=== PATIENT | female | born 1960 | race Caucasian/White ===

== ENCOUNTER 2017-04-27 16:34 | Emergency (ER) | payer MEDICAID ==
[2017-04-27 16:47] VITALS: BP 149/83
[2017-04-27] MEDS ORDERED: Sodium Chloride 0.9% 10 ML Syringe FLUSH PRN (17:14)
[2017-04-27] MEDS ORDERED: Ondansetron 4 MG/2 ML SDV IVPUSH ONE (17:15)
[2017-04-27] MEDS ORDERED: Lactated Ringers 1,000 ML IV SCH (17:15)
--- NOTE | 2017-04-27 17:21 | EDM.PDOC ---
ED HPI GENERAL MEDICAL PROBLEM - General Chief Complaint: Gastrointestinal Problem Stated Complaint: FLU Time Seen by Provider: 04/27/17 17:07 Source of Information: Reports: Patient, RN Notes Reviewed History Limitations: Reports: No Limitations - History of Present Illness INITIAL COMMENTS - FREE TEXT/NARRATIVE: 57-year-old female presents emergency department day complaint of nausea vomiting and diarrhea she's been ill for about 4 days denies any sick contacts no exposures food no fevers, still passing gas stool is mostly water no blood no formed stool has used Compazine for her nausea with some relief stomach Pain Score (Numeric/FACES): 5 - Related Data Allergies Allergy/AdvReac Type Severity Reaction Status Date / Time latex Allergy Numbness Verified 04/27/17 16:46 nitrofurantoin Allergy Shortness Verified 04/27/17 16:46 [From Macrobid] of Breath NSAIDS (Non-Steroidal Allergy Rash Verified 04/27/17 16:46 Anti-Inflamma Penicillins Allergy Rash Verified 04/27/17 16:46 Home Meds: Home Meds ALPRAZolam [Xanax] 1 mg PO DAILY 06/13/16 [History] Estradiol 0.5 mg PO DAILY 06/13/16 [History] Levothyroxine [Levothroid] 137 mcg PO DAILY 06/13/16 [History] Omeprazole 40 mg PO BEDTIME 06/13/16 [History] Sertraline [Zoloft] 100 mg PO DAILY 06/13/16 [History] ARIPiprazole [Abilify] 5 mg PO DAILY 04/27/17 [History] Prochlorperazine Maleate [Compazine] 10 mg PO Q8HR PRN 04/27/17 [History] Past Medical History HEENT History: Reports: Impaired Vision Cardiovascular History: Reports: High Cholesterol Respiratory History: Reports: Asthma Gastrointestinal History: Reports: GERD [employer]GER [employer]TER[employer]MENT AND [employer] History: Reports: Other (See Below) Other OB/BYN History: bilateral breaset reduction Musculoskeletal History: Reports: Arthritis Psychiatric History: Reports: Anxiety, Depression Endocrine/Metabolic History: Reports: Hypothyroidism - Infectious Disease History Infectious Disease History: Reports: Chicken Pox - Past Surgical History GI Surgical History: Reports: Cholecystectomy, Colonoscopy, EGD Female Surgical History: Reports: Hysterectomy Other Musculoskeletal Surgeries/Procedures:: connective tissue disease. scope on bilateral knee for miniscus Social & Family History - Tobacco Use Smoking Status *Q: Never Smoker - Caffeine Use Caffeine Use: Reports: Coffee, Soda - Recreational Drug Use Recreational Drug Use: No ED ROS GENERAL - Review of Systems Review Of Systems: See Below Constitutional: Reports: No Symptoms HEENT: Reports: No Symptoms Respiratory: Reports: No Symptoms Cardiovascular: Reports: No Symptoms GI/Abdominal: Reports: Abdominal Pain, Diarrhea, Flatus, Nausea, Vomiting : Reports: No Symptoms Musculoskeletal: Reports: No Symptoms Skin: Reports: No Symptoms ED EXAM, GI/ABD - Physical Exam Exam: See Below Text/Narrative:: General: Female, not in any distress, alert and oriented x3 HEENT: head is atraumatic normocephalic, eyes pupils equal round reactive to light, sclera clear no conjunctivitis appreciated. Ears tympanic membranes clear and hodges landmarks and light reflex are present bilaterally canals are clear. Nose no septal deviation, nares are clear, no blood present. Mouth mucosa is moist and pink no erythema or exudate noted in soft palate, tongue is midline uvula is midline, dentition is intact. Neck: Supple no thyromegaly no tracheal deviation. Nodes: Cervical nodes subclavicular nodes nontender no palpable lymphadenopathy noted. Lungs: clear to auscultation bilaterally with symmetrical respirations, no adventitious noise appreciated. CV: Regular rate and rhythm S1 and S2 appreciated no murmurs rubs or gallops noted. Abdomen: Soft, nontender, no palpable masses or organomegaly appreciated, no distention no guarding bowel sounds are present, . Neuro: Cranial nerves II through XII grossly intact Skin: Warm and dry, intact Extremities: No lower extremity edema appreciated, Course - Vital Signs Last Recorded V/S: Last Vital Signs Temp 97.0 F 04/27/17 16:46 Pulse 83 04/27/17 16:46 Resp 16 04/27/17 16:46 BP 149/83 H 04/27/17 16:46 Pulse Ox 95 04/27/17 16:46 - Orders/Labs/Meds Orders: Active Orders 24 hr Category Date Time Status Peripheral IV Care [RC] . DIRECTED Care 04/27/17 17:14 Active Lactated Ringers [Ringers, Lactated] 1,000 ml Med 04/27/17 17:15 Active IV ASDIRECTED Sodium Chloride 0.9% [Saline Flush] Med 04/27/17 17:14 Active 10 ml FLUSH ASDIRECTED PRN Peripheral IV Insertion Adult [OM.PC] Urgent Oth 04/27/17 17:14 Ordered Medication Orders Lactated Ringer's (Ringers, Lactated) 1,000 mls @ 999 mls/hr IV ASDIRECTED EBONIE Last Admin: 04/27/17 17:37 Dose: 999 mls/hr Sodium Chloride (Saline Flush) 10 ml FLUSH ASDIRECTED PRN PRN Reason: Keep Vein Open Last Admin: 04/27/17 17:33 Dose: 10 ml Labs: Laboratory Tests 04/27/17 04/27/17 04/27/17 Range/Units 17:26 17:26 17:26 WBC 9.3 (4.5-11.0) K/uL RBC 4.12 (3.30-5.50) M/uL Hgb 11.2 L (12.0-15.0) g/dL Hct 35.5 L (36.0-48.0) % MCV 86 (80-98) fL MCH 27 (27-31) pg MCHC 32 (32-36) % Plt Count 300 (150-400) K/uL Neut % (Auto) 71 H (36-66) % Lymph % (Auto) 22 L (24-44) % [place] % (Auto) 6 (2-6) % Eos % (Auto) 1 L (2-4) % Baso % (Auto) 0 (0-1) % Sodium 139 L (140-148) mmol/L Potassium 3.5 L (3.6-5.2) mmol/L Chloride 103 (100-108) mmol/L Carbon Dioxide 29 (21-32) mmol/L Anion Gap 10.5 (5.0-14.0) mmol/L BUN 13 (7-18) mg/dL Creatinine 0.8 (0.6-1.0) mg/dL Est Cr Clr Drug Dosing 65.73 mL/min Estimated GFR (MDRD) > 60 (>60) Glucose 108 H (74-106) mg/dL Lactic Acid 1.3 (0.4-2.0) mmol/L Calcium 7.9 L (8.5-10.1) mg/dL Total Bilirubin 0.2 (0.2-1.0) mg/dL AST 53 H (15-37) U/L ALT 68 (12-78) U/L Alkaline Phosphatase 148 H (46-116) U/L Troponin I < 0.017 (0.000-0.056) ng/mL Total Protein 7.5 (6.4-8.2) g/dL Albumin 3.0 L (3.4-5.0) g/dL Globulin 4.5 H (2.3-3.5) g/dL Albumin/Globulin Ratio 0.7 L (1.2-2.2) Lipase 77 (73-393) U/L Urine Color Urine Appearance Urine pH (4.5-8.0) Ur Specific [place] (1.008-1.030) Urine Protein (NEGATIVE) mg/dL Urine Glucose (UA) (NEGATIVE) mg/dL Urine Ketones (NEGATIVE) mg/dL Urine Occult Blood (NEGATIVE) Urine Nitrite (NEGATIVE) Urine Bilirubin (NEGATIVE) Urine Urobilinogen (NORMAL) mg/dL Ur Leukocyte Esterase (NEGATIVE) Urine RBC (0-5) Urine WBC (0-5) Ur Epithelial Cells Amorphous Sediment Urine Bacteria Urine Mucus 04/27/17 Range/Units 17:43 WBC (4.5-11.0) K/uL RBC (3.30-5.50) M/uL Hgb (12.0-15.0) g/dL Hct (36.0-48.0) % MCV (80-98) fL MCH (27-31) pg MCHC (32-36) % Plt Count (150-400) K/uL Neut % (Auto) (36-66) % Lymph % (Auto) (24-44) % [place] % (Auto) (2-6) % Eos % (Auto) (2-4) % Baso % (Auto) (0-1) % Sodium (140-148) mmol/L Potassium (3.6-5.2) mmol/L Chloride (100-108) mmol/L Carbon Dioxide (21-32) mmol/L Anion Gap (5.0-14.0) mmol/L BUN (7-18) mg/dL Creatinine (0.6-1.0) mg/dL Est Cr Clr Drug Dosing mL/min Estimated GFR (MDRD) (>60) Glucose (74-106) mg/dL Lactic Acid (0.4-2.0) mmol/L Calcium (8.5-10.1) mg/dL Total Bilirubin (0.2-1.0) mg/dL AST (15-37) U/L ALT (12-78) U/L Alkaline Phosphatase (46-116) U/L Troponin I (0.000-0.056) ng/mL Total Protein (6.4-8.2) g/dL Albumin (3.4-5.0) g/dL Globulin (2.3-3.5) g/dL Albumin/Globulin Ratio (1.2-2.2) Lipase (73-393) U/L Urine Color Yellow Urine Appearance Cloudy Urine pH 6.0 (4.5-8.0) Ur Specific [place] 1.010 (1.008-1.030) Urine Protein Negative (NEGATIVE) mg/dL Urine Glucose (UA) Normal (NEGATIVE) mg/dL Urine Ketones Negative (NEGATIVE) mg/dL Urine Occult Blood Negative (NEGATIVE) Urine Nitrite Negative (NEGATIVE) Urine Bilirubin Negative (NEGATIVE) Urine Urobilinogen Normal (NORMAL) mg/dL Ur Leukocyte Esterase Negative (NEGATIVE) Urine RBC 0-5 (0-5) Urine WBC 0-5 (0-5) Ur Epithelial Cells Few Amorphous Sediment Not seen Urine Bacteria Moderate Urine Mucus Not seen Meds: Medications Generic Name Dose Route Start Last Admin Trade Name Freq PRN Reason Stop Dose Admin Lactated Ringer's 1,000 mls @ 999 mls/hr 04/27/17 17:15 04/27/17 17:37 Ringers, Lactated IV 999 mls/hr ASDIRECTED EBONIE Administration Sodium Chloride 10 ml 04/27/17 17:14 04/27/17 17:33 Saline Flush FLUSH 10 ml ASDIRECTED PRN Administration Keep Vein Open Discontinued Medications Generic Name Dose Route Start Last Admin Trade Name Freq PRN Reason Stop Dose Admin Ondansetron HCl 4 mg 04/27/17 17:15 04/27/17 17:33 Zofran IVPUSH 04/27/17 17:16 4 mg ONETIME ONE Administration Departure - Departure Time of Disposition: 18:27 Disposition: Home, Self-Care 01 Condition: Good Clinical Impression: Gastroenteritis - Discharge Information Referrals: Andrew Barbosa Sr, MD [Primary Care Provider] - Forms: ED Department Discharge Additional Instructions: Use Zofran as needed for nausea and vomiting symptoms, use Anaspaz as needed for cramping abdominal pain, Please followup with your primary care provider in 3-5 days if not better, please call return to the emergency department with worsening of symptoms. - My Orders Last 24 Hours: My Active Orders 04/27/17 17:14 Peripheral IV Care [RC] . DIRECTED Sodium Chloride 0.9% [Saline Flush] 10 ml FLUSH ASDIRECTED PRN Peripheral IV Insertion Adult [OM.PC] Urgent 04/27/17 17:15 Lactated Ringers [Ringers, Lactated] 1,000 ml IV ASDIRECTED - Assessment/Plan Last 24 Hours: My Active Orders 04/27/17 17:14 Peripheral IV Care [RC] . DIRECTED Sodium Chloride 0.9% [Saline Flush] 10 ml FLUSH ASDIRECTED PRN Peripheral IV Insertion Adult [OM.PC] Urgent 04/27/17 17:15 Lactated Ringers [Ringers, Lactated] 1,000 ml IV ASDIRECTED Plan: Assessment Acuity = acute Site and laterality = gastroenteritis Etiology = unclear etiology Manifestations = none Location of injury = Home Lab values = CBC, CMP, troponin unremarkable Plan She had some improvement with Zofran provided as well as 1 L fluids plan is to discharge home with Zofran and Anaspaz for cramping abdominal discomfort follow- up with primary care in 3-5 days if not better Patient was in agreement with the plan all questions were answered, they were instructed to return to the emergency department or call for worsening symptoms. This note was dictated using [employer] voice recognition software please call with any questions.
== END 2017-04-27 18:39 | disposition home or self-care (01) ==
LOC: JP.ED 16:34
DX: K52.9 Noninfective gastroenteritis and colitis, unspecified (principal); E78.00 Pure hypercholesterolemia, unspecified; J45.909 Unspecified asthma, uncomplicated; K21.9 Gastro-esophageal reflux disease without esophagitis; M19.90 Unspecified osteoarthritis, unspecified site; F32.9 Major depressive disorder, single episode, unspecified; E03.9 Hypothyroidism, unspecified; Z90.49 Acquired absence of other specified parts of digestive tract; Z90.710 Acquired absence of both cervix and uterus; Z79.899 Other long term (current) drug therapy; Z88.0 Allergy status to penicillin; Z88.8 Allergy status to other drugs, medicaments and biological substances; Z91.040 Latex allergy status
CPT/HCPCS: 36415; 80053; 81001; 83605; 83690; 84484; 85025; 96361; 96374; 99284; J2405; J7050; J7120

== ENCOUNTER 2017-05-27 15:08 | Emergency (ER) | payer MEDICAID ==
[2017-05-27] MEDS ORDERED: Morphine 2 MG/ML Syringe IVPUSH ONE ×2 (16:06→17:32)
[2017-05-27] MEDS ORDERED: Clopidogrel 75 MG Tab PO ONE (16:08)
--- NOTE | 2017-05-27 16:27 | EDM.PDOC ---
ED HPI GENERAL MEDICAL PROBLEM - General Chief Complaint: Chest Pain Stated Complaint: CHEST PAIN Time Seen by Provider: 05/27/17 15:59 Source of Information: Reports: Patient, RN Notes Reviewed History Limitations: Reports: No Limitations - History of Present Illness INITIAL COMMENTS - FREE TEXT/NARRATIVE: 57-year-old female presents emergency department day complaint of chest pain and shortness of breath she states started about 6 hours ago it is worse with exertion she has no known cardiac history did present to her clinic at which an EKG was done was told by her provider that it was negative and recommend she follow-up in the emergency department. She has no radiation of the pain no diaphoresis no nausea vomiting Middle Chest Pain Score (Numeric/FACES): 7 Headache Pain Score (Numeric/FACES): 5 - Related Data Allergies Allergy/AdvReac Type Severity Reaction Status Date / Time latex Allergy Numbness Verified 05/27/17 15:45 nitrofurantoin Allergy Shortness Verified 05/27/17 15:45 [From Macrobid] of Breath NSAIDS (Non-Steroidal Allergy Rash Verified 05/27/17 15:45 Anti-Inflamma Penicillins Allergy Rash Verified 05/27/17 15:45 Home Meds: Home Meds ALPRAZolam [Xanax] 1 mg PO BEDTIME 06/13/16 [History] Estradiol 0.5 mg PO DAILY 06/13/16 [History] Levothyroxine [Levothroid] 137 mcg PO DAILY 06/13/16 [History] Omeprazole 40 mg PO BEDTIME 06/13/16 [History] Sertraline [Zoloft] 200 mg PO BEDTIME 06/13/16 [History] ARIPiprazole [Abilify] 5 mg PO BEDTIME 04/27/17 [History] Prochlorperazine Maleate [Compazine] 10 mg PO Q8HR PRN 04/27/17 [History] Past Medical History HEENT History: Reports: Impaired Vision Cardiovascular History: Reports: High Cholesterol Respiratory History: Reports: Asthma Gastrointestinal History: Reports: GERD [employer]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 scope on bilateral knee for miniscus Social & Family History - Tobacco Use Smoking Status *Q: Never Smoker Second Hand Smoke Exposure: No - Caffeine Use Caffeine Use: Reports: Soda - Recreational Drug Use Recreational Drug Use: No ED ROS GENERAL - Review of Systems Review Of Systems: See Below Constitutional: Reports: No Symptoms HEENT: Reports: No Symptoms Respiratory: Reports: Shortness of Breath Cardiovascular: Reports: Chest Pain, Dyspnea on Exertion GI/Abdominal: Reports: No Symptoms : Reports: No Symptoms Musculoskeletal: Reports: No Symptoms Skin: Reports: No Symptoms Neurological: Reports: No Symptoms ED EXAM, GENERAL - Physical Exam Exam: See Below Free Text/Narrative:: General: Female, not in any distress, alert and oriented x3 HEENT: head is atraumatic normocephalic, eyes pupils equal round reactive to light, sclera clear no conjunctivitis appreciated. Ears tympanic membranes clear and hodges landmarks and light reflex are present bilaterally canals are clear. Nose no septal deviation, nares are clear, no blood present. Mouth mucosa is moist and pink no erythema or exudate noted in soft palate, tongue is midline uvula is midline, dentition is intact. Neck: Supple no thyromegaly no tracheal deviation. Nodes: Cervical nodes subclavicular nodes nontender no palpable lymphadenopathy noted. Lungs: clear to auscultation bilaterally with symmetrical respirations, no adventitious noise appreciated. CV: Regular rate and rhythm S1 and S2 appreciated no murmurs rubs or gallops noted. Abdomen: Soft, nontender, no palpable masses or organomegaly appreciated, no distention no guarding bowel sounds are present, . Neuro: Cranial nerves II through XII grossly intact Skin: Warm and dry, intact Extremities: No lower extremity edema appreciated, Course - Vital Signs Last Recorded V/S: Last Vital Signs Temp 96.3 F 05/27/17 16:44 Pulse 69 05/27/17 16:44 Resp 16 05/27/17 18:30 BP 122/63 05/27/17 18:30 Pulse Ox 96 05/27/17 18:30 - Orders/Labs/Meds Orders: Active Orders 24 hr Category Date Time Status Cardiac Monitoring [RC] .As Directed Care 05/27/17 16:06 Active EKG Documentation Completion [RC] ASDIRECTED Care 05/27/17 16:08 Active Chest 2V [CR] Stat Exams 05/27/17 16:07 Taken Chest w Cont [CT] Stat Exams 05/27/17 17:30 Taken Iopamidol [Isovue-300 (61%)] Med 05/27/17 18:00 Active 100 ml IV . DIRECTED Sodium Chloride 0.9% [Normal Saline] 1,000 ml Med 05/27/17 17:30 Active IV ASDIRECTED Sodium Chloride 0.9% [Normal Saline] 100 ml Med 05/27/17 18:00 Active IV ASDIRECTED ED Pain Medications Reflex [OM.PC] Stat Oth 05/27/17 16:07 Ordered EKG 12 Lead [EK] Stat Ther 05/27/17 16:07 Ordered Medication Orders Sodium Chloride (Normal Saline) 1,000 mls @ 500 mls/hr IV ASDIRECTED [facility] Last Admin: 05/27/17 17:40 Dose: 500 mls/hr Sodium Chloride (Normal Saline) 100 mls @ 3 mls/sec IV ASDIRECTED [facility] Last Admin: 05/27/17 18:07 Dose: 3 mls/sec Iopamidol (Isovue-300 (61%)) 100 ml IV . DIRECTED [facility] Last Admin: 05/27/17 18:07 Dose: 100 ml Labs: Laboratory Tests 05/27/17 05/27/17 05/27/17 Range/Units 16:19 16:19 16:19 WBC 9.4 (4.5-11.0) K/uL RBC 3.93 (3.30-5.50) M/uL Hgb 10.8 L (12.0-15.0) g/dL Hct 33.9 L (36.0-48.0) % MCV 86 (80-98) fL MCH 28 (27-31) pg MCHC 32 (32-36) % Plt Count 275 (150-400) K/uL Neut % (Auto) 66 (36-66) % Lymph % (Auto) 28 (24-44) % [place] % (Auto) 5 (2-6) % Eos % (Auto) 1 L (2-4) % Baso % (Auto) 0 (0-1) % D-Dimer, Quantitative < 100 (0.0-400.0) ng/mL Sodium 140 (140-148) mmol/L Potassium 4.2 (3.6-5.2) mmol/L Chloride 103 (100-108) mmol/L Carbon Dioxide 31 (21-32) mmol/L Anion Gap 6.2 (5.0-14.0) mmol/L BUN 12 (7-18) mg/dL Creatinine 0.8 (0.6-1.0) mg/dL Est Cr Clr Drug Dosing 65.73 mL/min Estimated GFR (MDRD) > 60 (>60) Glucose 91 (74-106) mg/dL Calcium 8.7 (8.5-10.1) mg/dL Total Bilirubin 0.2 (0.2-1.0) mg/dL AST 29 (15-37) U/L ALT 41 (12-78) U/L Alkaline Phosphatase 132 H (46-116) U/L CK-MB (CK-2) 0.3 (0-3.6) mg/mL Troponin I < 0.017 (0.000-0.056) ng/mL Total Protein 7.3 (6.4-8.2) g/dL Albumin 3.0 L (3.4-5.0) g/dL Globulin 4.3 H (2.3-3.5) g/dL Albumin/Globulin Ratio 0.7 L (1.2-2.2) Lipase 80 (73-393) U/L Meds: Medications Generic Name Dose Route Start Last Admin Trade Name Freq PRN Reason Stop Dose Admin Sodium Chloride 1,000 mls @ 500 mls/hr 05/27/17 17:30 05/27/17 17:40 Normal Saline IV 500 mls/hr ASDIRECTED EBONIE Administration Sodium Chloride 100 mls @ 3 mls/sec 05/27/17 18:00 05/27/17 18:07 Normal Saline IV 3 mls/sec ASDIRECTED EBONIE Administration Iopamidol 100 ml 05/27/17 18:00 05/27/17 18:07 Isovue-300 (61%) IV 100 ml . DIRECTED EBONIE Administration Discontinued Medications Generic Name Dose Route Start Last Admin Trade Name Freq PRN Reason Stop Dose Admin Clopidogrel Bisulfate 300 mg 05/27/17 16:08 05/27/17 16:25 Plavix PO 05/27/17 16:09 300 mg ONETIME ONE Administration Al Hydroxide/Mg Hydroxide 15 0 ml 05/27/17 17:06 05/27/17 17:13 ml/ Lidocaine HCl 15 ml PO 05/27/17 17:07 15 ml ONETIME ONE Administration Morphine Sulfate 2 mg 05/27/17 16:06 05/27/17 16:35 Morphine IVPUSH 05/27/17 16:07 2 mg ONETIME ONE Administration Morphine Sulfate 2 mg 05/27/17 17:32 05/27/17 17:41 Morphine IVPUSH 05/27/17 17:33 2 mg ONETIME ONE Administration Departure - Departure Time of Disposition: 18:50 Disposition: Home, Self-Care 01 Condition: Good Clinical Impression: Atypical chest pain Referrals: PCP,None [Primary Care Provider] - Forms: ED Department Discharge Additional Instructions: use ibuprofen or Tylenol as needed for pain control please follow-up with your primary care in 3-5 days for further evaluation if not better, call or return to the emergency department worsening of symptoms - My Orders Last 24 Hours: My Active Orders 05/27/17 16:06 Cardiac Monitoring [RC] .As Directed 05/27/17 16:07 Chest 2V [CR] Stat ED Pain Medications Reflex [OM.PC] Stat EKG 12 Lead [EK] Stat 05/27/17 16:08 EKG Documentation Completion [RC] ASDIRECTED 05/27/17 17:30 Chest w Cont [CT] Stat Sodium Chloride 0.9% [Normal Saline] 1,000 ml IV ASDIRECTED 05/27/17 18:00 Iopamidol [Isovue-300 (61%)] 100 ml IV . DIRECTED Sodium Chloride 0.9% [Normal Saline] 100 ml IV ASDIRECTED - Assessment/Plan Last 24 Hours: My Active Orders 05/27/17 16:06 Cardiac Monitoring [RC] .As Directed 05/27/17 16:07 Chest 2V [CR] Stat ED Pain Medications Reflex [OM.PC] Stat EKG 12 Lead [EK] Stat 05/27/17 16:08 EKG Documentation Completion [RC] ASDIRECTED 05/27/17 17:30 Chest w Cont [CT] Stat Sodium Chloride 0.9% [Normal Saline] 1,000 ml IV ASDIRECTED 05/27/17 18:00 Iopamidol [Isovue-300 (61%)] 100 ml IV . DIRECTED Sodium Chloride 0.9% [Normal Saline] 100 ml IV ASDIRECTED Plan: Assessment Acuity = acute Site and laterality = atypical chest pain Etiology = unclear etiology Manifestations = none Location of injury = Home Lab values = CBC, CMP, d-dimer, troponin all negative CT scan of chest shows no acute process Plan I did review lab work and image studies with her she received relief from morphine no relief from the GI cocktail she is going to use Tylenol as needed for pain control follow up with primary care for further evaluation 3-5 days Patient was in agreement with the plan all questions were answered, they were instructed to return to the emergency department or call for worsening symptoms. This note was dictated using [employer] voice recognition software please call with any questions.
[2017-05-27] MEDS ORDERED: Alum Hydrox/Mag Hydrox/Simeth 15 ML, Lidocaine 2% 15 ML PO ONE ×2 (17:06)
[2017-05-27] MEDS ORDERED: Sodium Chloride 0.9% 1,000 ML IV SCH (17:30)
[2017-05-27] MEDS ORDERED: Iopamidol 612 MG/ML 100 ML Bottle IV SCH (18:00)
[2017-05-27] MEDS ORDERED: Sodium Chloride 0.9% 100 ML IV SCH (18:00)
[2017-05-27 18:31] VITALS: BP 122/63
--- NOTE | 2017-05-28 09:17 | CR ---
Chest 2V INDICATION: Chest Pain FINDINGS: Heart size at the upper limits of normal. Lungs are clear. Hypertrophic changes thoracic sp ine. Exam otherwise unremarkable.
== END 2017-05-27 19:01 | disposition home or self-care (01) ==
LOC: JP.ED 15:08
DX: R07.89 Other chest pain (principal); E78.00 Pure hypercholesterolemia, unspecified; J45.909 Unspecified asthma, uncomplicated; K21.9 Gastro-esophageal reflux disease without esophagitis; F32.9 Major depressive disorder, single episode, unspecified; E03.9 Hypothyroidism, unspecified; Z79.899 Other long term (current) drug therapy; Z88.0 Allergy status to penicillin; Z88.8 Allergy status to other drugs, medicaments and biological substances; Z91.040 Latex allergy status
CPT/HCPCS: 36415; 71020; 71260; 80053; 82553; 83690; 84484; 85025; 85379; 93005; 96361; 96374; 96376; 99285; A9270; J2270; J7030; J7040; Q9967

== ENCOUNTER 2017-10-16 22:12 | Emergency (ER) | payer MEDICAID ==
[2017-10-16] MEDS ORDERED: Ketamine 500 MG/5 ML MDV IV ONE (22:59)
[2017-10-16] MEDS ORDERED: methylPREDNISolone Sodium Succinate 125 MG/2 ML SDV IVPUSH ONE (23:00)
--- NOTE | 2017-10-16 23:50 | EDM.PDOC ---
ED HPI GENERAL MEDICAL PROBLEM - General Chief Complaint: Neurological Problem Stated Complaint: ILLNESS Time Seen by Provider: 10/16/17 22:45 Source of Information: Reports: Patient, Family History Limitations: Reports: No Limitations - History of Present Illness INITIAL COMMENTS - FREE TEXT/NARRATIVE: 57-year-old female with a history of trigeminal neuralgia fortunately has had no symptoms for the past 5 years, but over the past 4-6 hours symptoms have recurred on the left side and she is very uncomfortable. She's had no recent illness, trauma, fevers or chills, nausea or vomiting or other reason for the acute recurrence of symptoms. It's a recurring shocklike pain occurring from the front of the ear on the left side into the upper and lower jaw. There is a baseline pain between shocks that is present as well. It was treated successfully with IV ketamine with her past exacerbations. Duration: Hour(s): (5-6 hours) Location: Reports: Head, Face (Left side) Severity: Moderate Associated Symptoms: Reports: No Other Symptoms Left Face Pain Score (Numeric/FACES): 10 - Related Data Allergies Allergy/AdvReac Type Severity Reaction Status Date / Time latex Allergy Numbness Verified 10/16/17 22:24 nitrofurantoin Allergy Shortness Verified 10/16/17 22:24 [From Macrobid] of Breath NSAIDS (Non-Steroidal Allergy Rash Verified 10/16/17 22:24 Anti-Inflamma Penicillins Allergy Rash Verified 10/16/17 22:24 Home Meds: Home Meds ALPRAZolam [Xanax] 1 mg PO BEDTIME 06/13/16 [History] Omeprazole 40 mg PO BEDTIME 06/13/16 [History] Sertraline [Zoloft] 200 mg PO BEDTIME 06/13/16 [History] ARIPiprazole [Abilify] 5 mg PO BEDTIME 04/27/17 [History] Prochlorperazine Maleate [Compazine] 10 mg PO Q8HR PRN 04/27/17 [History] Past Medical History HEENT History: Reports: Impaired Vision Cardiovascular History: Reports: High Cholesterol Respiratory History: Reports: Asthma Gastrointestinal History: Reports: GERD 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: , Other (See Below) Other OB/BYN History: bilateral breaset reduction Musculoskeletal History: Reports: Arthritis Neurological History: Reports: Concussion Psychiatric History: Reports: Anxiety, Depression, Panic Attack, Psych Hospitalization(s), Suicide Attempt, Suicidal Ideation Endocrine/Metabolic History: Reports: Hypothyroidism Hematologic History: Reports: Anemia - Infectious Disease History Infectious Disease History: Reports: Chicken Pox, Helicobacter Pylori, Mumps - Past Surgical History GI Surgical History: Reports: Cholecystectomy, Colonoscopy, EGD, Polypectomy Female Surgical History: Reports: Hysterectomy, Oophorectomy Musculoskeletal Surgical History: Reports: Other (See Below) Other Musculoskeletal Surgeries/Procedures:: connective tissue disease. scope on bilateral knee for miniscus Social & Family History - Tobacco Use Smoking Status *Q: Never Smoker Second Hand Smoke Exposure: No - Caffeine Use Caffeine Use: Reports: Soda - Recreational Drug Use Recreational Drug Use: No ED ROS GENERAL - Review of Systems Review Of Systems: See Below Constitutional: Reports: Malaise. Denies: Fever, Chills Respiratory: Denies: Shortness of Breath, Cough Cardiovascular: Denies: Chest Pain GI/Abdominal: Denies: Abdominal Pain, Nausea, Vomiting : Reports: No Symptoms Skin: Denies: Rash, Erythema Neurological: Reports: Headache Psychiatric: Reports: No Symptoms ED EXAM, NEURO - Physical Exam Exam: See Below Exam Limited By: No Limitations General Appearance: Alert, No Apparent Distress (Patient looks uncomfortable but not in any distress) Ears: Normal External Exam Throat/Mouth: Normal Inspection Head Exam: Atraumatic, Normocephalic Neck: Supple Respiratory/Chest: No Respiratory Distress Cardiovascular: Regular Rate, Rhythm Course - Vital Signs Last Recorded V/S: Last Vital Signs Temp 96.6 F 10/16/17 22:38 Pulse 72 10/16/17 23:53 Resp 15 10/16/17 23:53 BP 141/71 H 10/16/17 23:53 Pulse Ox 97 10/16/17 23:53 - Orders/Labs/Meds Meds: Medications Discontinued Medications Generic Name Dose Route Start Last Admin Trade Name Caesarq PRN Reason Stop Dose Admin Ketamine HCl 50 mg 10/16/17 22:59 10/16/17 23:22 Ketalar IV 10/16/17 23:00 50 mg ONETIME ONE Administration Methylprednisolone Sodium Succinate 125 mg 10/16/17 23:00 10/16/17 23:22 Solu-Medrol IVPUSH 10/16/17 23:01 125 mg ONETIME ONE Administration - Re-Assessments/Exams Free Text/Narrative Re-Assessment/Exam: 10/16/17 23:52 An IV was started, the patient was given 50 mg of IV ketamine along with 125 mg of Solu-Medrol. Within 20 minutes she had marked improvement. She'll be discharged with 10 doses of Vicodin to use on a when necessary basis over the next few days and can return for another IV dose of ketamine if symptoms are persisting in 24 hours. Departure - Departure Time of Disposition: 00:03 Disposition: Home, Self-Care 01 Condition: Good Clinical Impression: Trigeminal neuralgia of left side of face - Discharge Information Instructions: Trigeminal Neuralgia Referrals: Andrew Barbosa Sr, MD [Primary Care Provider] - Forms: ED Department Discharge Care Plan Goals: Rest, pain medication as directed, and return tomorrow evening if another dose of ketamine is needed. Return sooner if worsening or concerns.
[2017-10-16 23:53] VITALS: BP 141/71
== END 2017-10-17 00:02 | disposition home or self-care (01) ==
LOC: JP.ED 22:12
DX: G50.0 Trigeminal neuralgia (principal); Z91.040 Latex allergy status; Z88.0 Allergy status to penicillin; Z88.8 Allergy status to other drugs, medicaments and biological substances
CPT/HCPCS: 96374; 96375; 99284; J2930

== ENCOUNTER 2017-10-17 19:42 | Emergency (ER) | payer MEDICAID ==
[2017-10-17] MEDS ORDERED: methylPREDNISolone Sodium Succinate 125 MG/2 ML SDV IVPUSH ONE (20:18)
[2017-10-17] MEDS ORDERED: Ketamine 500 MG/5 ML MDV IV ONE (20:18)
--- NOTE | 2017-10-17 20:34 | EDM.PDOC ---
ED HPI GENERAL MEDICAL PROBLEM - General Chief Complaint: Neurological Problem Stated Complaint: FACIAL PAIN Time Seen by Provider: 10/17/17 20:15 Source of Information: Reports: Patient, Family History Limitations: Reports: No Limitations - History of Present Illness INITIAL COMMENTS - FREE TEXT/NARRATIVE: 57-year-old female who is having a recurrence of left trigeminal neuralgia his back for retreatment. Last evening he gave her an IV dose of ketamine along with Solu-Medrol, she had marked improvement but this afternoon symptoms started recurring and we discussed if they were not resolved she should come in for a second treatment. No fevers or chills. No visual disturbance. No nausea or vomiting. Location: Reports: Head, Face Severity: Mild Left Face Pain Score (Numeric/FACES): 7 - Related Data Allergies Allergy/AdvReac Type Severity Reaction Status Date / Time latex Allergy Numbness Verified 10/17/17 19:58 nitrofurantoin Allergy Shortness Verified 10/17/17 19:58 [From Macrobid] of Breath NSAIDS (Non-Steroidal Allergy Rash Verified 10/17/17 19:58 Anti-Inflamma Penicillins Allergy Rash Verified 10/17/17 19:58 Home Meds: Home Meds ALPRAZolam [Xanax] 1 mg PO BEDTIME 06/13/16 [History] Omeprazole 40 mg PO BEDTIME 06/13/16 [History] Sertraline [Zoloft] 200 mg PO BEDTIME 06/13/16 [History] ARIPiprazole [Abilify] 5 mg PO BEDTIME 04/27/17 [History] Prochlorperazine Maleate [Compazine] 10 mg PO Q8HR PRN 04/27/17 [History] Past Medical History HEENT History: Reports: Impaired Vision Cardiovascular History: Reports: High Cholesterol Respiratory History: Reports: Asthma Gastrointestinal History: Reports: GERD LICENSED 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: , Other (See Below) Other OB/BYN History: bilateral breaset reduction Musculoskeletal History: Reports: Arthritis Neurological History: Reports: Concussion Psychiatric History: Reports: Anxiety, Depression, Panic Attack, Psych Hospitalization(s), Suicide Attempt, Suicidal Ideation Endocrine/Metabolic History: Reports: Hypothyroidism Hematologic History: Reports: Anemia - Infectious Disease History Infectious Disease History: Reports: Chicken Pox, Helicobacter Pylori, Mumps - Past Surgical History GI Surgical History: Reports: Cholecystectomy, Colonoscopy, EGD, Polypectomy Female Surgical History: Reports: Hysterectomy, Oophorectomy Musculoskeletal Surgical History: Reports: Other (See Below) Other Musculoskeletal Surgeries/Procedures:: connective tissue disease. scope on bilateral knee for miniscus Social & Family History - Tobacco Use Smoking Status *Q: Never Smoker Second Hand Smoke Exposure: No - Caffeine Use Caffeine Use: Reports: Soda - Recreational Drug Use Recreational Drug Use: No ED ROS GENERAL - Review of Systems Review Of Systems: See Below Constitutional: Denies: Fever HEENT: Denies: Dental Pain Respiratory: Denies: Shortness of Breath Cardiovascular: Denies: Chest Pain GI/Abdominal: Denies: Nausea, Vomiting Psychiatric: Reports: No Symptoms ED EXAM, NEURO - Physical Exam Exam: See Below Exam Limited By: No Limitations General Appearance: Alert, No Apparent Distress Head Exam: Atraumatic, Other (I did not reproduce the trigeminal neuralgia with palpation of the temporal area) Respiratory/Chest: No Respiratory Distress Course - Vital Signs Last Recorded V/S: Last Vital Signs Temp 98.1 F 10/17/17 20:04 Pulse 71 10/17/17 20:55 Resp 14 10/17/17 20:55 BP 142/75 H 10/17/17 20:55 Pulse Ox 95 10/17/17 20:55 - Orders/Labs/Meds Meds: Medications Discontinued Medications Generic Name Dose Route Start Last Admin Trade Name Jaci PRVince Reason Stop Dose Admin Ketamine HCl 50 mg 10/17/17 20:18 10/17/17 20:28 Ketalar IV 10/17/17 20:19 50 mg ONETIME ONE Administration Methylprednisolone Sodium Succinate 62.5 mg 10/17/17 20:18 10/17/17 20:28 Solu-Medrol IVPUSH 10/17/17 20:19 62.5 mg ONETIME ONE Administration - Re-Assessments/Exams Free Text/Narrative Re-Assessment/Exam: 10/17/17 20:33 An IV was started, patient was given 50 mg of IV ketamine along with 62.5 mg of Solu-Medrol. Hopefully she will continue to improve, she can return if worsening. Departure - Departure Time of Disposition: 20:55 Disposition: Home, Self-Care 01 Condition: Good Clinical Impression: Trigeminal neuralgia of left side of face - Discharge Information Instructions: Trigeminal Neuralgia Referrals: Andrew Barbosa Sr, MD [Primary Care Provider] - Forms: ED Department Discharge Care Plan Goals: Continue your regular medications, recheck in 2-3 days if not improving satisfactorily.
[2017-10-17 20:55] VITALS: BP 142/75
== END 2017-10-17 20:59 | disposition home or self-care (01) ==
LOC: JP.ED 19:42
DX: G50.0 Trigeminal neuralgia (principal); Z79.899 Other long term (current) drug therapy; Z91.040 Latex allergy status; Z88.0 Allergy status to penicillin; Z88.8 Allergy status to other drugs, medicaments and biological substances
CPT/HCPCS: 96374; 96375; 99284; J2930

== ENCOUNTER 2017-10-26 03:17 | Emergency (ER) | payer MEDICAID ==
[2017-10-26] MEDS ORDERED: Ketamine 500 MG/5 ML MDV IV ONE (03:49)
[2017-10-26] MEDS ORDERED: methylPREDNISolone Sodium Succinate 125 MG/2 ML SDV IVPUSH ONE (03:50)
--- NOTE | 2017-10-26 03:56 | EDM.PDOC ---
ED HPI GENERAL MEDICAL PROBLEM - General Chief Complaint: ENT Problem Stated Complaint: FACE PAIN Time Seen by Provider: 10/26/17 03:51 Source of Information: Reports: Patient History Limitations: Reports: No Limitations - History of Present Illness INITIAL COMMENTS - FREE TEXT/NARRATIVE: pt arrived with severe left facial pain. She has a known diagnosis of trigeminal neuralgia. She was on tegretol but this was affecting her zoloft and she stopped this about 5 years ago, She did not have any further problems until in September when she startd having recurrent pain. Onset: Sudden Duration: Hour(s): Location: Reports: Face Associated Symptoms: Reports: No Other Symptoms left jaw Pain Score (Numeric/FACES): 7 - Related Data Allergies Allergy/AdvReac Type Severity Reaction Status Date / Time latex Allergy Numbness Verified 10/26/17 03:36 nitrofurantoin Allergy Shortness Verified 10/26/17 03:36 [From Macrobid] of Breath NSAIDS (Non-Steroidal Allergy Rash Verified 10/26/17 03:36 Anti-Inflamma Penicillins Allergy Rash Verified 10/26/17 03:36 Home Meds: Home Meds ALPRAZolam [Xanax] 1 mg PO BEDTIME 06/13/16 [History] Omeprazole 40 mg PO BEDTIME 06/13/16 [History] Sertraline [Zoloft] 200 mg PO BEDTIME 06/13/16 [History] ARIPiprazole [Abilify] 5 mg PO BEDTIME 04/27/17 [History] Prochlorperazine Maleate [Compazine] 10 mg PO Q8HR PRN 04/27/17 [History] Past Medical History HEENT History: Reports: Impaired Vision Cardiovascular History: Reports: High Cholesterol Respiratory History: Reports: Asthma Gastrointestinal History: Reports: GERD 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: , Other (See Below) Other OB/BYN History: bilateral breaset reduction Musculoskeletal History: Reports: Arthritis Neurological History: Reports: Concussion, Other (See Below) Other Neuro History: Trijeminal neuralgia Psychiatric History: Reports: Anxiety, Depression, Panic Attack, Psych Hospitalization(s), Suicide Attempt, Suicidal Ideation Endocrine/Metabolic History: Reports: Hypothyroidism Hematologic History: Reports: Anemia - Infectious Disease History Infectious Disease History: Reports: Chicken Pox, Mumps - Past Surgical History GI Surgical History: Reports: Cholecystectomy, Colonoscopy, EGD, Polypectomy Female Surgical History: Reports: Breast Reduction, Section, Hysterectomy, Oophorectomy Musculoskeletal Surgical History: Reports: Other (See Below) Other Musculoskeletal Surgeries/Procedures:: connective tissue disease. scope on bilateral knee for miniscus Social & Family History - Tobacco Use Smoking Status *Q: Never Smoker Second Hand Smoke Exposure: No - Caffeine Use Caffeine Use: Reports: Soda - Recreational Drug Use Recreational Drug Use: No ED ROS ENT - Review of Systems Review Of Systems: See Below Constitutional: Reports: No Symptoms HEENT: Reports: Other ( evere left lanette facial pain) Respiratory: Reports: No Symptoms Cardiovascular: Reports: No Symptoms Endocrine: Reports: No Symptoms GI/Abdominal: Reports: No Symptoms : Reports: No Symptoms Musculoskeletal: Reports: No Symptoms Skin: Reports: No Symptoms ED EXAM, ENT - Physical Exam Exam: See Below Text/Narrative:: pt has a known diagnosis of trigeminal neuralgia and now has recurrent pain. She has not been able to take the tegretol she was on previously because she was having some problem with her it interfering with her zoloft. Exam Limited By: No Limitations General Appearance: Alert Ears: Normal TMs Nose: Normal Inspection Mouth/Throat: Normal Inspection Head: Atraumatic Neck: Normal Inspection Respiratory/Chest: No Respiratory Distress Cardiovascular: Regular Rate, Rhythm GI/Abdominal: Soft, Non-Tender (Female) Exam: Deferred Rectal (Female) Exam: Deferred Back: Normal Inspection Extremities: Normal Inspection Neurological: Alert Course - Vital Signs Last Recorded V/S: Last Vital Signs Temp 36.1 C 10/26/17 04:44 Pulse 67 10/26/17 05:10 Resp 13 10/26/17 05:10 BP 113/54 L 10/26/17 05:10 Pulse Ox 95 10/26/17 05:10 - Orders/Labs/Meds Orders: Active Orders 24 hr Category Date Time Status Sodium Chloride 0.9% [Normal Saline] 1,000 ml Med 10/26/17 04:00 Active IV ASDIRECTED Sodium Chloride 0.9% [Saline Flush] Med 10/26/17 03:48 Active 10 ml FLUSH ASDIRECTED PRN Saline Lock Insert [OM.PC] Routine Oth 10/26/17 03:48 Ordered Medication Orders Sodium Chloride (Normal Saline) 1,000 mls @ 500 mls/hr IV ASDIRECTED EBONIE Last Admin: 10/26/17 04:18 Dose: 500 mls/hr Sodium Chloride (Saline Flush) 10 ml FLUSH ASDIRECTED PRN PRN Reason: Keep Vein Open Last Admin: 10/26/17 04:35 Dose: 10 ml Admin: 10/26/17 04:22 Dose: 10 ml Meds: Medications Generic Name Dose Route Start Last Admin Trade Name Freq PRN Reason Stop Dose Admin Sodium Chloride 1,000 mls @ 500 mls/hr 10/26/17 04:00 10/26/17 04:18 Normal Saline IV 500 mls/hr ASDIRECTED EBONIE Administration Sodium Chloride 10 ml 10/26/17 03:48 10/26/17 04:35 Saline Flush FLUSH 10 ml ASDIRECTED PRN Administration Keep Vein Open Discontinued Medications Generic Name Dose Route Start Last Admin Trade Name Freq PRN Reason Stop Dose Admin Ketamine HCl 50 mg 10/26/17 03:49 10/26/17 04:27 Ketalar IV 10/26/17 03:50 50 mg ASDIRECTED ONE Administration Methylprednisolone Sodium Succinate 125 mg 10/26/17 03:50 10/26/17 04:23 Solu-Medrol IVPUSH 10/26/17 03:51 125 mg ONETIME ONE Administration Ondansetron HCl 4 mg 10/26/17 04:05 10/26/17 04:18 Zofran IVPUSH 10/26/17 04:06 4 mg ONETIME ONE Administration - Re-Assessments/Exams Free Text/Narrative Re-Assessment/Exam: 10/26/17 04:43 pt was given ketamine which she has had pain relief in the past from. She was given 50mg iv with solumedrol 125. She had good pain relief. She did become quite sleepy. Will follow in the er until she becomes more awake. 10/26/17 05:14 pt was given percocet 5/325 prior to leaving. Departure - Departure Time of Disposition: 05:15 Disposition: Home, Self-Care 01 Condition: Fair Clinical Impression: Trigeminal neuralgia - Discharge Information Referrals: Andrew Barbosa Sr, MD [Primary Care Provider] - Forms: ED Department Discharge Care Plan Goals: appt with Dr Barbosa regarding suppressive therapy for the trigeminal neuralgia , percocet 5/325 q6h prn for pain. - My Orders Last 24 Hours: My Active Orders 10/26/17 03:48 Sodium Chloride 0.9% [Saline Flush] 10 ml FLUSH ASDIRECTED PRN Saline Lock Insert [OM.PC] Routine 10/26/17 04:00 Sodium Chloride 0.9% [Normal Saline] 1,000 ml IV ASDIRECTED - Assessment/Plan Last 24 Hours: My Active Orders 10/26/17 03:48 Sodium Chloride 0.9% [Saline Flush] 10 ml FLUSH ASDIRECTED PRN Saline Lock Insert [OM.PC] Routine 10/26/17 04:00 Sodium Chloride 0.9% [Normal Saline] 1,000 ml IV ASDIRECTED
[2017-10-26] MEDS ORDERED: Sodium Chloride 0.9% 1,000 ML IV SCH (04:00)
[2017-10-26] MEDS ORDERED: Ondansetron 4 MG/2 ML SDV IVPUSH ONE (04:05)
[2017-10-26] MEDS: Sodium Chloride 0.9% 10 ML Syringe FLUSH PRN ×2 (04:22→04:35)
[2017-10-26] MEDS ORDERED: Acetaminophen/oxyCODONE 325-5 MG Tab PO ONE (05:14)
[2017-10-26 05:17] VITALS: BP 117/55
== END 2017-10-26 05:41 | disposition home or self-care (01) ==
LOC: JP.ED 03:17
DX: G50.0 Trigeminal neuralgia (principal); Z91.040 Latex allergy status; Z88.0 Allergy status to penicillin; Z88.8 Allergy status to other drugs, medicaments and biological substances
CPT/HCPCS: 96361; 96374; 96375; 99283; A9270; J2405; J2930; J7040; J7050

== ENCOUNTER 2017-10-30 17:13 | Emergency (ER) | payer MEDICAID ==
[2017-10-30 17:25] VITALS: BP 170/102
[2017-10-30] MEDS ORDERED: HYDROmorphone 0.5 MG/0.5 ML Syringe IVPUSH ONE (18:04)
[2017-10-30] MEDS ORDERED: Ketorolac 30 MG/ML SDV IVPUSH ONE (18:04)
--- NOTE | 2017-10-30 18:15 | EDM.PDOC ---
ED HPI GENERAL MEDICAL PROBLEM - General Chief Complaint: ENT Problem Stated Complaint: L SIDE FACIAL/EAR PAIN Time Seen by Provider: 10/30/17 18:00 Source of Information: Reports: Patient, Family History Limitations: Reports: No Limitations - History of Present Illness INITIAL COMMENTS - FREE TEXT/NARRATIVE: 57-year-old female with a history of left trigeminal neuralgia is seen for the third time in the last month and a half for left-sided facial pain. It is "different" this time with more pain in her ear but she also has a burning sensation on her tongue. She really hasn't had several days in a row where she' s been asymptomatic for the past month and a half. No other neurologic symptoms peripherally, no speech problems, ambulation difficulties, weakness, or other concerns. She has not had a fever or chills, no nausea or vomiting. Location: Reports: Head, Face Severity: Moderate (Left side) 9 Pain Score (Numeric/FACES): 7 - Related Data Allergies Allergy/AdvReac Type Severity Reaction Status Date / Time latex Allergy Numbness Verified 10/30/17 17:29 nitrofurantoin Allergy Shortness Verified 10/30/17 17:29 [From Macrobid] of Breath NSAIDS (Non-Steroidal Allergy Rash Verified 10/30/17 17:29 Anti-Inflamma Penicillins Allergy Rash Verified 10/30/17 17:29 Home Meds: Home Meds ALPRAZolam [Xanax] 1 mg PO BEDTIME 06/13/16 [History] Omeprazole 40 mg PO BEDTIME 06/13/16 [History] Sertraline [Zoloft] 200 mg PO BEDTIME 06/13/16 [History] ARIPiprazole [Abilify] 5 mg PO BEDTIME 04/27/17 [History] Prochlorperazine Maleate [Compazine] 10 mg PO Q8HR PRN 04/27/17 [History] Past Medical History HEENT History: Reports: Impaired Vision Cardiovascular History: Reports: High Cholesterol Respiratory History: Reports: Asthma Gastrointestinal History: Reports: GERD 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: , Other (See Below) Other OB/BYN History: bilateral breaset reduction Musculoskeletal History: Reports: Arthritis Neurological History: Reports: Concussion, Other (See Below) Other Neuro History: Trijeminal neuralgia Psychiatric History: Reports: Anxiety, Depression, Panic Attack, Psych Hospitalization(s), Suicide Attempt, Suicidal Ideation Endocrine/Metabolic History: Reports: Hypothyroidism Hematologic History: Reports: Anemia - Infectious Disease History Infectious Disease History: Reports: Chicken Pox, Mumps - Past Surgical History GI Surgical History: Reports: Cholecystectomy, Colonoscopy, EGD, Polypectomy Female Surgical History: Reports: Breast Reduction, Section, Hysterectomy, Oophorectomy Musculoskeletal Surgical History: Reports: Other (See Below) Other Musculoskeletal Surgeries/Procedures:: connective tissue disease. scope on bilateral knee for miniscus Social & Family History - Tobacco Use Smoking Status *Q: Never Smoker Second Hand Smoke Exposure: No - Caffeine Use Caffeine Use: Reports: Soda - Recreational Drug Use Recreational Drug Use: No ED ROS GENERAL - Review of Systems Review Of Systems: See Below Constitutional: Reports: Malaise. Denies: Fever, Chills HEENT: Reports: Ear Pain, Other (Burning-like sensation to the left side of her tongue) Respiratory: Reports: No Symptoms Cardiovascular: Reports: No Symptoms GI/Abdominal: Reports: No Symptoms : Reports: No Symptoms Skin: Reports: No Symptoms. Denies: Rash Psychiatric: Reports: No Symptoms ED EXAM, GENERAL - Physical Exam Exam: See Below Exam Limited By: No Limitations General Appearance: Alert Eye Exam: Bilateral Eye: Normal Inspection Ears: Normal TMs, Other (She has no pain with movement of the ear pinna on the left or palpation of the trigeminal nerve) Ear Exam: Bilateral Ear: Auricle Normal, TM normal, Tenderness (No tenderness to palpation of either ear pinna or helix) Throat/Mouth: Normal Inspection Head: Atraumatic Respiratory/Chest: No Respiratory Distress Neurological: Alert, Oriented, No Motor/Sensory Deficits Course - Vital Signs Last Recorded V/S: Last Vital Signs Temp 94.9 F L 10/30/17 17:35 Pulse 86 10/30/17 17:35 Resp 17 10/30/17 17:35 BP 170/102 H 10/30/17 17:35 Pulse Ox 98 10/30/17 17:35 - Orders/Labs/Meds Orders: Active Orders 24 hr Category Date Time Status Head wo Cont [CT] Stat Exams 10/30/17 18:39 Taken Labs: Laboratory Tests 10/30/17 10/30/17 Range/Units 18:16 18:16 WBC 9.9 (4.5-11.0) K/uL RBC 4.11 (3.30-5.50) M/uL Hgb 11.1 L (12.0-15.0) g/dL Hct 35.1 L (36.0-48.0) % MCV 85 (80-98) fL MCH 27 (27-31) pg MCHC 32 (32-36) % Plt Count 297 (150-400) K/uL Neut % (Auto) 72 H (36-66) % Lymph % (Auto) 24 (24-44) % [place] % (Auto) 4 (2-6) % Eos % (Auto) 1 L (2-4) % Baso % (Auto) 0 (0-1) % ESR 46 H (0-25) mm/hr Sodium 141 (140-148) mmol/L Potassium 4.0 (3.6-5.2) mmol/L Chloride 103 (100-108) mmol/L Carbon Dioxide 31 (21-32) mmol/L Anion Gap 7.2 (5.0-14.0) mmol/L BUN 10 (7-18) mg/dL Creatinine 0.9 (0.6-1.0) mg/dL Est Cr Clr Drug Dosing 58.42 mL/min Estimated GFR (MDRD) > 60 (>60) Glucose 105 (74-106) mg/dL Calcium 8.9 (8.5-10.1) mg/dL C-Reactive Protein 1.06 H (0.0-0.3) mg/dL TSH, Ultra Sensitive 0.820 (0.358-3.740) uIU/mL Meds: Medications Discontinued Medications Generic Name Dose Route Start Last Admin Trade Name Freq PRN Reason Stop Dose Admin Hydromorphone HCl 0.5 mg 10/30/17 18:04 10/30/17 18:23 Dilaudid IVPUSH 10/30/17 18:05 0.5 mg ONETIME ONE Administration - Re-Assessments/Exams Free Text/Narrative Re-Assessment/Exam: 10/31/17 00:07 CT of the head was done which was negative. Patient was given 0.5 mg of IV Dilaudid, CBC, BMP, TSH, sedimentation rate and CRP was obtained. 10/31/17 00:07 There was a mild increase in CRP and a moderate increase in sedimentation rate. These are possibly related to her chronic arthritic difficulties. CBC and CMP as well as TSH were normal. All copies of the labs were given to the patient and she will recheck with Dr. Barbosa on Thursday, she may need an MRI of the head or or a neurologic consultation. Departure - Departure Time of Disposition: 19:49 Disposition: Home, Self-Care 01 Condition: Good Clinical Impression: Trigeminal neuralgia of left side of face - Discharge Information Instructions: Trigeminal Neuralgia Referrals: Andrew Barbosa Sr, MD [Primary Care Provider] - Forms: ED Department Discharge Care Plan Goals: Rest this weekend and continue medications as prescribed as well as pain medication if needed. Recheck on Thursday as scheduled. - My Orders Last 24 Hours: My Active Orders 10/30/17 18:39 Head wo Cont [CT] Stat - Assessment/Plan Last 24 Hours: My Active Orders 10/30/17 18:39 Head wo Cont [CT] Stat
== END 2017-10-30 19:49 | disposition home or self-care (01) ==
LOC: JP.ED 17:13
DX: G50.0 Trigeminal neuralgia (principal); E78.00 Pure hypercholesterolemia, unspecified; E03.9 Hypothyroidism, unspecified; Z91.040 Latex allergy status; Z88.0 Allergy status to penicillin; Z88.8 Allergy status to other drugs, medicaments and biological substances
CPT/HCPCS: 36415; 70450; 80048; 84443; 85025; 85651; 86140; 96374; 99284; J1170

== ENCOUNTER 2020-09-12 16:45 | Emergency (ER) | payer MEDICAID ==
[2020-09-12] MEDS ORDERED: Sodium Chloride 0.9% 10 ML Syringe FLUSH PRN (17:15)
[2020-09-12] MEDS ORDERED: Ondansetron 4 MG/2 ML SDV IVPUSH ONE (17:15)
[2020-09-12] MEDS ORDERED: Ketamine 500 MG/5 ML MDV IV ONE (17:15)
[2020-09-12] MEDS ORDERED: methylPREDNISolone Sodium Succinate 125 MG/2 ML SDV IVPUSH ONE (17:15)
--- NOTE | 2020-09-12 17:21 | EDM.PDOC ---
ED HPI GENERAL MEDICAL PROBLEM - General Chief Complaint: General Stated Complaint: JAW PAIN Time Seen by Provider: 09/12/20 17:05 Source of Information: Reports: Patient, Family, Old Records, RN History Limitations: Reports: No Limitations - History of Present Illness INITIAL COMMENTS - FREE TEXT/NARRATIVE: 60 yo female has been having intermittent pain in the L side of her face like her prior trigeminal neuralgia. Sx's began on Thursday. Has not reached out to her primary care provider. Has not tolerated carbamazepine in the past. Asks for Ketamine as she thinks this works the best for her of the meds she's tried for this in the past. Her last visit here for this was about 2.5 yrs ago. Onset: Gradual Onset Date: 09/09/20 Duration: Day(s): (~3), Intermittent, Waxing/Waning Location: Reports: Face (L sided) Quality: Reports: Sharp, Other (shooting) Severity: Moderate Improves with: Reports: None Worsens with: Reports: Other (unknown) Context: Reports: Other (See HPI) Associated Symptoms: Reports: No Other Symptoms Treatments CONFIGURATION SPECIALIST: Reports: Other (see below) (none) Left Face/Facial Pain Score (Numeric/FACES): 8 - Related Data Allergies Allergy/AdvReac Type Severity Reaction Status Date / Time latex Allergy Numbness Verified 10/30/17 17:29 nitrofurantoin Allergy Shortness Verified 10/30/17 17:29 [From Macrobid] of Breath NSAIDS (Non-Steroidal Allergy Rash Verified 10/30/17 17:29 Anti-Inflamma Penicillins Allergy Rash Verified 10/30/17 17:29 Home Meds: Home Meds ALPRAZolam [Xanax] 1 mg PO BEDTIME 06/13/16 [History] Omeprazole 40 mg PO BEDTIME 06/13/16 [History] Sertraline [Zoloft] 200 mg PO BEDTIME 06/13/16 [History] ARIPiprazole [Abilify] 5 mg PO BEDTIME 04/27/17 [History] Prochlorperazine Maleate [Compazine] 10 mg PO Q8HR PRN 04/27/17 [History] Past Medical History HEENT History: Reports: Impaired Vision Cardiovascular History: Reports: High Cholesterol Respiratory History: Reports: Asthma Gastrointestinal History: Reports: GERD INBOUND CALL CENTER AGENT History: Reports: , Other (See Below) Other INBOUND CALL CENTER AGENT History: bilateral breaset reduction Musculoskeletal History: Reports: Arthritis Neurological History: Reports: Concussion, Other (See Below) Other Neuro History: Trijeminal neuralgia Psychiatric History: Reports: Anxiety, Depression, Panic Attack, Psych Hospitalization(s), Suicide Attempt, Suicidal Ideation Endocrine/Metabolic History: Reports: Hypothyroidism Hematologic History: Reports: Anemia - Infectious Disease History Infectious Disease History: Reports: Chicken Pox, Mumps - Past Surgical History GI Surgical History: Reports: Cholecystectomy, Colonoscopy, EGD, Polypectomy Female Surgical History: Reports: Breast Reduction, Section, Hysterectomy, Oophorectomy Musculoskeletal Surgical History: Reports: Other (See Below) Other Musculoskeletal Surgeries/Procedures:: connective tissue disease. scope on bilateral knee for miniscus Social & Family History - Tobacco Use Tobacco Use Status *Q: Never Tobacco User - Caffeine Use Caffeine Use: Reports: Soda - Recreational Drug Use Recreational Drug Use: No ED ROS GENERAL - Review of Systems Review Of Systems: See Below Constitutional: Reports: No Symptoms HEENT: Reports: Other (L facial pain) GI/Abdominal: Denies: Nausea Musculoskeletal: Reports: No Symptoms Skin: Reports: No Symptoms Neurological: Reports: Other (shooting pain in her L cheek area that starts in front of the ear. ) Psychiatric: Reports: No Symptoms ED EXAM, GENERAL - Physical Exam Exam: See Below Exam Limited By: No Limitations General Appearance: Alert, WD/WN, No Apparent Distress Eye Exam: Bilateral Eye: EOMI, Normal Inspection Ears: Normal External Exam, Normal Canal, Hearing Grossly Normal, Normal TMs Ear Exam: Bilateral Ear: Auricle Normal, Canal Normal, TM normal Nose: Normal Inspection, No Blood Throat/Mouth: Normal Inspection, Normal Lips, Normal Oropharynx, Normal Voice, No Airway Compromise Head: Atraumatic, Normocephalic Neck: Normal Inspection Respiratory/Chest: No Respiratory Distress, Lungs Clear, Normal Breath Sounds, No Accessory Muscle Use Cardiovascular: Regular Rate, Rhythm Extremities: Normal Inspection Neurological: Alert, Oriented, CN II-XII Intact, Normal Cognition, No Motor/Sensory Deficits Psychiatric: Normal Affect, Normal Mood Skin Exam: Warm, Dry, Intact, Normal Color, No Rash Course - Vital Signs Last Recorded V/S: Last Vital Signs Temp 36.4 C 09/12/20 17:06 Pulse 73 09/12/20 17:06 Resp 16 09/12/20 17:06 BP 174/85 H 09/12/20 17:06 Pulse Ox 97 09/12/20 17:06 - Orders/Labs/Meds Orders: Active Orders 24 hr Category Date Time Status Sodium Chloride 0.9% [Saline Flush] Med 09/12/20 17:15 Active 10 ml FLUSH ASDIRECTED PRN Saline Lock Insert [OM.PC] Routine Oth 09/12/20 17:15 Ordered EKG 12 Lead [EK] Routine Ther 09/12/20 16:54 Stop Req Medication Orders Sodium Chloride (Saline Flush) 10 ml FLUSH ASDIRECTED PRN PRN Reason: Keep Vein Open Last Admin: 09/12/20 17:25 Dose: 10 ml Documented by: CHRISTINA Corados: Medications Generic Name Dose Route Start Last Admin Trade Name Freq PRN Reason Stop Dose Admin Sodium Chloride 10 ml 09/12/20 17:15 09/12/20 17:25 Saline Flush FLUSH 10 ml ASDIRECTED PRN Administration Keep Vein Open Discontinued Medications Generic Name Dose Route Start Last Admin Trade Name Freq PRN Reason Stop Dose Admin Ketamine HCl 50 mg 09/12/20 17:15 09/12/20 17:25 Ketalar IV 09/12/20 17:16 50 mg ONETIME ONE Administration Methylprednisolone Sodium Succinate 125 mg 09/12/20 17:15 09/12/20 17:24 Solu-Medrol IVPUSH 09/12/20 17:16 125 mg ONETIME ONE Administration Ondansetron HCl 4 mg 09/12/20 17:15 09/12/20 17:22 Zofran IVPUSH 09/12/20 17:16 4 mg ONETIME ONE Administration - Re-Assessments/Exams Free Text/Narrative Re-Assessment/Exam: 09/12/20 18:03 Feels better after her tx. Feels ready for d/c. Departure - Departure Time of Disposition: 18:04 Disposition: Home, Self-Care 01 Condition: Good Clinical Impression: Trigeminal neuralgia of left side of face - Discharge Information *PRESCRIPTION DRUG MONITORING PROGRAM REVIEWED*: No *COPY OF PRESCRIPTION DRUG MONITORING REPORT IN PATIENT JULIETH: No Referrals: Yudy Gamble MD [Primary Care Provider] - Forms: ED Department Discharge Additional Instructions: F/U with your provider as needed. No driving tonight. Sepsis Event Note (ED) - Evaluation Sepsis Screening Result: No Definite Risk - Focused Exam Vital Signs: Vital Signs Temp Pulse Resp BP Pulse Ox 09/12/20 17:06 36.4 C 73 16 174/85 H 97 09/12/20 16:55 36.4 C 73 16 174/85 H 97 - My Orders Last 24 Hours: My Active Orders 09/12/20 16:54 EKG 12 Lead [EK] Routine 09/12/20 17:15 Sodium Chloride 0.9% [Saline Flush] 10 ml FLUSH ASDIRECTED PRN Saline Lock Insert [OM.PC] Routine - Assessment/Plan Last 24 Hours: My Active Orders 09/12/20 16:54 EKG 12 Lead [EK] Routine 09/12/20 17:15 Sodium Chloride 0.9% [Saline Flush] 10 ml FLUSH ASDIRECTED PRN Saline Lock Insert [OM.PC] Routine
[2020-09-12 18:16] VITALS: BP 176/75; PULSE 60
== END 2020-09-12 18:14 | disposition home or self-care (01) ==
LOC: JP.ED 16:45
DX: G50.0 Trigeminal neuralgia (principal); J45.909 Unspecified asthma, uncomplicated; K21.9 Gastro-esophageal reflux disease without esophagitis; Z91.040 Latex allergy status; Z88.1 Allergy status to other antibiotic agents; Z88.8 Allergy status to other drugs, medicaments and biological substances; Z88.0 Allergy status to penicillin; Z79.899 Other long term (current) drug therapy
CPT/HCPCS: 96374; 96375; 99283; 99283-25; J2405; J2930

== ENCOUNTER 2021-07-06 18:22 | Emergency (ER) | payer MEDICARE, MEDICAID ==
[2021-07-06 18:40] VITALS: BP 134/79; PULSE 72
--- NOTE | 2021-07-06 19:40 | EDM.PDOC ---
ED HPI GENERAL MEDICAL PROBLEM - General Chief Complaint: General Stated Complaint: BROKEN TOOTH/ PAIN Time Seen by Provider: 07/06/21 19:25 Source of Information: Reports: Patient History Limitations: Reports: No Limitations - History of Present Illness INITIAL COMMENTS - FREE TEXT/NARRATIVE: Daphnie is a 61-year-old female presenting to the ED with concerns of infected tooth #30. The patient has had a previous root canal and crown on this tooth, however, the crown has subsequently fallen off in the tooth is in poor repair. Basically, the tooth appears to be with severe discoloration and not much root remaining. The patient has been unable to get into her dentist until mid July and actually had to take of the file to file down the sharp edges of the tooth so she did not continue to scrape the buccal mucosa. In addition, she has had increased pain and swelling of the jaw. She denies any fever, chills, or difficulty with swallowing. Right Lower Tooth/Teeth Pain Score (Numeric/FACES): 8 - Related Data Allergies Allergy/AdvReac Type Severity Reaction Status Date / Time latex Allergy Numbness Verified 07/06/21 19:04 nitrofurantoin Allergy Shortness Verified 07/06/21 19:04 [From Macrobid] of Breath NSAIDS (Non-Steroidal Allergy Rash Verified 07/06/21 19:04 Anti-Inflamma Penicillins Allergy Rash Verified 07/06/21 19:04 Home Meds: Home Meds Omeprazole 40 mg PO BEDTIME 06/13/16 [History] Prochlorperazine Maleate [Compazine] 10 mg PO Q8HR PRN 04/27/17 [History] ALPRAZolam [Alprazolam] 0.5 mg PO DAILY PRN 07/06/21 [History] Gabapentin [Neurontin] 300 mg PO BEDTIME PRN 07/06/21 [History] Venlafaxine HCl [Venlafaxine ER] 150 mg PO BEDTIME 07/06/21 [History] atenoloL [Atenolol] 25 mg PO ASDIRECTED PRN 07/06/21 [History] atorvaSTATin Calcium [Atorvastatin Calcium] 20 mg PO BEDTIME 07/06/21 [History] Past Medical History HEENT History: Reports: Cataract, Impaired Vision Cardiovascular History: Reports: Arrhythmia, High Cholesterol Respiratory History: Reports: Asthma Gastrointestinal History: Reports: GERD GEOTHERMAL PRODUCTION MANAGER History: Reports: , Other (See Below) Other GEOTHERMAL PRODUCTION MANAGER History: bilateral breaset reduction Musculoskeletal History: Reports: Arthritis Neurological History: Reports: Concussion, Other (See Below) Other Neuro History: Trijeminal neuralgia Psychiatric History: Reports: Anxiety, Depression, Panic Attack, Psych Hospitalization(s), Suicide Attempt, Suicidal Ideation Endocrine/Metabolic History: Reports: Hypothyroidism Hematologic History: Reports: Anemia, B12 Deficiency, Iron Deficiency - Infectious Disease History Infectious Disease History: Reports: Chicken Pox, Herpes, Measles, Mumps, Novel Coronavirus - Past Surgical History HEENT Surgical History: Reports: Cataract Surgery GI Surgical History: Reports: Cholecystectomy, Colonoscopy, EGD, Polypectomy Female Surgical History: Reports: Breast Reduction, Section, Hysterectomy, Oophorectomy Musculoskeletal Surgical History: Reports: Knee Replacement, Other (See Below) Other Musculoskeletal Surgeries/Procedures:: connective tissue disease. scope on bilateral knee for miniscus Social & Family History - Tobacco Use Tobacco Use Status *Q: Never Tobacco User - Caffeine Use Caffeine Use: Reports: Soda ED ROS GENERAL - Review of Systems Review Of Systems: See Below Constitutional: Reports: No Symptoms HEENT: Reports: Dental Pain (Involving tooth #30 which is missing this crown and has an open fracture. There is a previous root canal done on this tooth.) ED EXAM, GENERAL - Physical Exam Exam: See Below Exam Limited By: No Limitations General Appearance: Alert, Mild Distress Throat/Mouth: Other (Open fracture on tooth #30 with gingival swelling and pain at the base of the tooth consistent with a apical abscess. The tooth is severely discolored suggesting that it is a .) Course - Vital Signs Last Recorded V/S: Last Vital Signs Temp 36.1 C 07/06/21 19:13 Pulse 72 07/06/21 19:13 Resp 16 07/06/21 19:13 BP 134/79 07/06/21 19:13 Pulse Ox 100 07/06/21 19:13 - Re-Assessments/Exams Free Text/Narrative Re-Assessment/Exam: 07/06/21 19:39 has an open fracture that is chronic involving tooth #30 which now appears to have developed an apical abscess. We will start her on clindamycin 300 mg 3 times daily for 10 days and I will give her a small amount of [place] for pain control. I have put through a referral for the [facility] dental clinic because the patient's not able to get into her dentist until mid July to address this issue. Patient is in agreement with this plan and is suitable for discharge in satisfactory condition. Departure - Departure Time of Disposition: 19:35 Disposition: Home, Self-Care 01 Clinical Impression: Dental abscess Open fracture of tooth Qualifiers: Encounter type: initial encounter Qualified Code(s): S02.5XXB - Fracture of tooth (traumatic), initial encounter for open fracture - Discharge Information Instructions: Dental Abscess, [id number], Tooth Injuries, [id number] Referrals: Yudy Gamble MD [Primary Care Provider] - Care Plan Goals: I have put through a referral for you to be seen at the [facility] on [address] for Thursday. Please show up at 815 to get into the queue. In the meantime we are going to start you on clindamycin 300 mg 3 times a day for the infection and hydrocodone for moderate to severe pain. Have a Kamala ry Mila and good luck with taking care of this tooth. Sepsis Event Note (ED) - Evaluation Sepsis Screening Result: No Definite Risk - Focused Exam Vital Signs: Vital Signs Temp Pulse Resp BP Pulse Ox 07/06/21 19:13 36.1 C 72 16 134/79 100 07/06/21 18:38 36.1 C 72 16 134/79 100 - Problem List & Annotations (1) Dental abscess SNOMED Code(s): 074825214 Code(s): K04.7 - PERIAPICAL ABSCESS WITHOUT SINUS Status: Acute Priority: Low Current Visit: Yes (2) Open fracture of tooth SNOMED Code(s): 96992382170883080 Code(s): S02.5XXB - FRACTURE OF TOOTH (TRAUMATIC), INIT ENCNTR FOR OPEN FRACTURE Status: Acute Priority: Low Current Visit: Yes Qualifiers: Encounter type: initial encounter Qualified Code(s): S02.5XXB - Fracture of tooth (traumatic), initial encounter for open fracture - Problem List Review Problem List Initiated/Reviewed/Updated: Yes
== END 2021-07-06 19:55 | disposition home or self-care (01) ==
LOC: JP.ED 18:22
DX: S02.5XXB Fracture of tooth (traumatic), initial encounter for open fracture (principal); K04.7 Periapical abscess without sinus; J45.909 Unspecified asthma, uncomplicated; Z91.040 Latex allergy status; Z88.0 Allergy status to penicillin; Z88.8 Allergy status to other drugs, medicaments and biological substances; Z79.899 Other long term (current) drug therapy; Z90.49 Acquired absence of other specified parts of digestive tract; X58.XXXA Exposure to other specified factors, initial encounter
CPT/HCPCS: 99282

== ENCOUNTER 2021-08-26 20:01 | Emergency (ER) | payer MEDICARE, MEDICAID ==
[2021-08-26] MEDS ORDERED: Sodium Chloride 0.9% 10 ML Syringe FLUSH PRN (21:40)
[2021-08-26] MEDS ORDERED: Ondansetron 4 MG/2 ML SDV IVPUSH ONE (21:40)
[2021-08-26] MEDS ORDERED: Sodium Chloride 0.9% 1,000 ML IV SCH (21:45)
[2021-08-26 22:25] VITALS: BP 146/86; PULSE 100
[2021-08-26] MEDS ORDERED: HYDROmorphone 0.5 MG/0.5 ML Syringe IVPUSH ONE (22:48)
== END 2021-08-26 23:19 | disposition home or self-care (01) ==
LOC: JP.ED 20:01
DX: A08.4 Viral intestinal infection, unspecified (principal); Z91.040 Latex allergy status; Z88.0 Allergy status to penicillin; Z88.8 Allergy status to other drugs, medicaments and biological substances; Z77.22 Contact with and (suspected) exposure to environmental tobacco smoke (acute) (chronic)
CPT/HCPCS: 36415; 80053; 85025; 96374; 96375; 99284; J1170; J2405; J7030

== ENCOUNTER 2021-10-05 17:04 | Emergency (ER) | payer MEDICARE, MEDICAID ==
[2021-10-05] MEDS ORDERED: HYDROmorphone 1 MG/ML Syringe IM ONE (17:50)
[2021-10-05 18:01] VITALS: BP 199/96; PULSE 78
== END 2021-10-05 18:59 | disposition home or self-care (01) ==
LOC: JP.ED 17:04
DX: S59.801A Other specified injuries of right elbow, initial encounter (principal); K21.9 Gastro-esophageal reflux disease without esophagitis; E78.00 Pure hypercholesterolemia, unspecified; E03.9 Hypothyroidism, unspecified; Z79.899 Other long term (current) drug therapy; Z91.040 Latex allergy status; Z88.0 Allergy status to penicillin; Z88.1 Allergy status to other antibiotic agents; Z88.8 Allergy status to other drugs, medicaments and biological substances; W01.0XXA Fall on same level from slipping, tripping and stumbling without subsequent striking against object, initial encounter
CPT/HCPCS: 73060-26-RT; 73060-RT; 73080-26-RT; 73080-RT; 96372; 99283; 99283-25; J1170

== ENCOUNTER 2022-05-03 23:23 | Emergency (ER) | payer MEDICARE, MEDICAID ==
[2022-05-03 23:57] VITALS: BP 189/80; PULSE 74
== END 2022-05-04 01:54 | disposition home or self-care (01) ==
LOC: JP.ED 23:23
DX: G50.0 Trigeminal neuralgia (principal); E78.00 Pure hypercholesterolemia, unspecified; K21.9 Gastro-esophageal reflux disease without esophagitis; E03.9 Hypothyroidism, unspecified; Z91.040 Latex allergy status; Z88.0 Allergy status to penicillin; Z88.1 Allergy status to other antibiotic agents; Z79.899 Other long term (current) drug therapy; Z86.16 Personal history of COVID-19
CPT/HCPCS: 99283

== ENCOUNTER 2022-05-24 21:48 | Emergency (ER) | payer MEDICARE, MEDICAID ==
[2022-05-24 23:05] VITALS: BP 157/67; PULSE 65
== END 2022-05-25 01:12 | disposition home or self-care (01) ==
LOC: JP.ED 21:48
DX: S93.602A Unspecified sprain of left foot, initial encounter (principal); E03.9 Hypothyroidism, unspecified; E78.00 Pure hypercholesterolemia, unspecified; K21.9 Gastro-esophageal reflux disease without esophagitis; Z86.16 Personal history of COVID-19; Z91.040 Latex allergy status; Z88.1 Allergy status to other antibiotic agents; Z88.0 Allergy status to penicillin; Z88.8 Allergy status to other drugs, medicaments and biological substances; Z79.899 Other long term (current) drug therapy; X50.1XXA Overexertion from prolonged static or awkward postures, initial encounter
CPT/HCPCS: 73630-LT; 73700-LT; 99284

== ENCOUNTER 2022-07-15 18:08 | Emergency (ER) | payer MEDICARE, MEDICAID ==
[2022-07-15 20:10] VITALS: BP 152/94; PULSE 75
== END 2022-07-15 20:10 | disposition home or self-care (01) ==
LOC: JP.ED 18:08
DX: N39.0 Urinary tract infection, site not specified (principal); R11.0 Nausea; J45.909 Unspecified asthma, uncomplicated; E78.00 Pure hypercholesterolemia, unspecified; Z91.040 Latex allergy status; Z88.6 Allergy status to analgesic agent; Z88.0 Allergy status to penicillin; Z79.899 Other long term (current) drug therapy; Z86.16 Personal history of COVID-19; Z90.49 Acquired absence of other specified parts of digestive tract
CPT/HCPCS: 81001; 87086; 87088; 87186; 99283

== ENCOUNTER 2022-08-01 23:38 | Emergency (ER) | payer MEDICARE, MEDICAID ==
[2022-08-01 23:53] VITALS: BP 183/105; PULSE 71
[2022-08-02] MEDS ORDERED: HYDROmorphone 1 MG/ML Syringe IM ONE (00:07)
[2022-08-02] MEDS ORDERED: Gabapentin 300 MG Cap PO ONE (00:42)
== END 2022-08-02 01:11 | disposition home or self-care (01) ==
LOC: JP.ED 23:38
DX: G50.0 Trigeminal neuralgia (principal); J45.909 Unspecified asthma, uncomplicated; E78.00 Pure hypercholesterolemia, unspecified; Z91.040 Latex allergy status; Z88.6 Allergy status to analgesic agent; Z88.0 Allergy status to penicillin; Z79.899 Other long term (current) drug therapy; Z90.49 Acquired absence of other specified parts of digestive tract; Z86.16 Personal history of COVID-19
CPT/HCPCS: 70450; 96372; 99283; A9270; J1170

== ENCOUNTER 2022-08-06 17:35 | Emergency (ER) | payer MEDICARE, MEDICAID ==
[2022-08-06 18:01] VITALS: PULSE 79
[2022-08-06] MEDS ORDERED: HYDROmorphone 1 MG/ML Syringe IM ONE (18:34)
[2022-08-06 18:49] VITALS: BP 152/68
== END 2022-08-06 19:10 | disposition home or self-care (01) ==
LOC: JP.ED 17:35
DX: G50.0 Trigeminal neuralgia (principal); E78.00 Pure hypercholesterolemia, unspecified; K21.9 Gastro-esophageal reflux disease without esophagitis; E03.9 Hypothyroidism, unspecified; Z86.16 Personal history of COVID-19; Z91.040 Latex allergy status; Z88.1 Allergy status to other antibiotic agents; Z88.0 Allergy status to penicillin; Z88.8 Allergy status to other drugs, medicaments and biological substances; Z79.899 Other long term (current) drug therapy
CPT/HCPCS: 96372; 99283; J1170

== ENCOUNTER 2022-08-20 16:20 | Emergency (ER) | payer MEDICARE, MEDICAID ==
[2022-08-20 16:36] VITALS: BP 171/86; PULSE 84
[2022-08-20] MEDS ORDERED: HYDROmorphone 1 MG/ML Syringe IM ONE (17:10)
== END 2022-08-20 17:39 | disposition home or self-care (01) ==
LOC: JP.ED 16:20
DX: G50.0 Trigeminal neuralgia (principal); E78.00 Pure hypercholesterolemia, unspecified; K21.9 Gastro-esophageal reflux disease without esophagitis; E03.9 Hypothyroidism, unspecified; Z86.16 Personal history of COVID-19; Z91.040 Latex allergy status; Z88.0 Allergy status to penicillin; Z88.1 Allergy status to other antibiotic agents; Z79.899 Other long term (current) drug therapy
CPT/HCPCS: 96372; 99283; J1170

== ENCOUNTER 2022-08-30 21:14 | Emergency (ER) | payer MEDICARE, MEDICAID ==
[2022-08-30 21:53] VITALS: BP 145/68; PULSE 73
[2022-08-30] MEDS ORDERED: Dexamethasone 4 MG/ML SDV IVPUSH STA (22:06)
[2022-08-30] MEDS ORDERED: Prochlorperazine 10 MG/2 ML SDV IVPUSH ONE (22:06)
[2022-08-30] MEDS ORDERED: Ketorolac 30 MG/ML SDV IVPUSH ONE (22:06)
[2022-08-30] MEDS ORDERED: Sodium Chloride 0.9% 10 ML Syringe FLUSH PRN (22:06)
[2022-08-30] MEDS ORDERED: OXcarbazepine 300 MG Tab PO ONE (22:08)
[2022-08-30] MEDS ORDERED: Sodium Chloride 0.9% 1,000 ML IV SCH (22:15)
== END 2022-08-30 23:44 | disposition home or self-care (01) ==
LOC: JP.ED 21:14
DX: G50.0 Trigeminal neuralgia (principal); K21.9 Gastro-esophageal reflux disease without esophagitis; J45.909 Unspecified asthma, uncomplicated; Z88.0 Allergy status to penicillin; Z88.8 Allergy status to other drugs, medicaments and biological substances; Z91.040 Latex allergy status
CPT/HCPCS: 36415; 86140; 96361; 96374; 96375; 99283; A9270; J0780; J1100; J1885; J3490; J7030